=== PATIENT | female | born 1965 | race Caucasian/White ===

== ENCOUNTER 2024-02-22 09:22 | Emergency (ER) | payer OTHER ==
[2024-02-22 09:30] VITALS: BP 136/62; PULSE 71; RESP 18; TEMP 97.7; BMI 46.9
[2024-02-22 11:58] LABS: PH,URINE 6.5 (5.0-8.0); URINE APPEARANCE CLEAR; URINE BILIRUBIN NEGATIVE (NEGATIVE); URINE COLOR YELLOW; URINE GLUCOSE (UA) NEGATIVE (NEGATIVE); URINE KETONE NEGATIVE (NEGATIVE); URINE LEUK ESTERASE NEGATIVE (NEGATIVE); URINE NITRITE NEGATIVE (NEGATIVE); URINE PROTEIN NEGATIVE (NEGATIVE); URINE UROBILINOGEN 0.2 mg/dL (0.2-1.0)
[2024-02-22] MEDS: DOXYCYCLINE HYCLATE 100 MG CAPSULE PO ONE (11:58)
[2024-02-22] MEDS ORDERED: DOXYCYCLINE HYCLATE 100 MG CAPSULE PO ONE (11:58)
[2024-02-22] MEDS: metroNIDAZOLE 500 MG TABLET PO ONE (11:58)
[2024-02-22] MEDS ORDERED: metroNIDAZOLE 250 MG TABLET ONE (11:59)
[2024-02-22 12:01] LABS: HCG,QUALITATIVE URINE Negative
[2024-02-22] MEDS ORDERED: LIDOCAINE HCL 1%, 10 MG/ML (20ML VIAL) ONE (12:05)
[2024-02-22] MEDS ORDERED: cefTRIAXone SODIUM 1 GM VIAL ONE (12:05)
[2024-02-22 12:39] LABS: SYPHILIS W/ RPR CONF NON-REACTIVE (NONREACTIVE)
[2024-02-22 13:08] LABS: HIV INTERPRETATION NEGATIVE (NEGATIVE)
== END 2024-02-22 12:11 | disposition home or self-care (01) ==
LOC: JER 09:22
DX: Z11.3 Encounter for screening for infections with a predominantly sexual mode of transmission (principal); R10.30 Lower abdominal pain, unspecified; M54.50 Low back pain, unspecified; R35.0 Frequency of micturition; L29.2 Pruritus vulvae
CPT/HCPCS: 36415; 81003; 84703; 86780; 87086; 87389; 99284-25